=== PATIENT | male | born 1985 | race Caucasian/White ===

== ENCOUNTER 2023-11-14 21:07 | Emergency (ER) | payer SELFPAY ==
[2023-11-14] MEDS ORDERED: Lidocaine 1% (PF) 30 ML VIAL ONE (21:46)
[2023-11-14] MEDS ORDERED: Bacitracin 1 PK ONE (22:23)
== END 2023-11-14 22:40 | disposition home or self-care (01) ==
LOC: CSHERS 21:07
DX: S01.01XA Laceration without foreign body of scalp, initial encounter (principal); S01.112A Laceration without foreign body of left eyelid and periocular area, initial encounter; S01.312A Laceration without foreign body of left ear, initial encounter; V03.99XA Pedestrian with other conveyance injured in collision with car, pick-up truck or van, unspecified whether traffic or nontraffic accident, initial encounter
CPT/HCPCS: 12002; 12011; 13151; J2001